=== PATIENT | female | born 1965 | race Caucasian/White ===

== ENCOUNTER → 2017-10-16 08:37 | Outpatient (CLI) | payer MEDICARE, MEDICAID, SELFPAY ==
[2017-10-16 09:21] LABS: Add Manual Diff / Slide Review NO; Basophils Percent Auto 1.1 % (0-2); Eosinophils Percent Auto 4.4 % (2-4); Hematocrit 36.3 % (36-46); Hemoglobin 11.8 g/dL (12.0-16.0); Lymphocytes Percent Auto 20.6 % (25-40); Mean Corpuscular HGB Conc 32.6 % (30-36); Mean Corpuscular Hemoglobin 27.7 PG (26-34); Mean Corpuscular Volume 85.1 fL (80-100); Monocytes Percent Auto 10.9 % (3-14); Neutrophils Absolute Auto 2600 /uL (3000-5900); Platelet Count 129 X10^3/uL (150-400); Red Blood Cell Count 4.27 X10^6/uL (4.0-5.2); Red Cell Distribution Width 14.1 % (11.6-14.8); White Blood Cell Count 4.1 X10^3/uL (4.5-11.0)
[2017-10-16 09:32] LABS: Alanine Aminotransferase 28 IU/L (9-52); Albumin 3.7 g/dL (3.5-5.0); Albumin Globulin Ratio 1.4 (1.0-2.8); Alkaline Phosphatase 57 U/L (38-126); Aspartate Aminotransferase 24 IU/L (14-36); BUN Creatinine Ratio 16.3 (6-22); Bilirubin Total 0.3 mg/dL (0.2-1.3); Blood Urea Nitrogen 13 mg/dL (7-17); Calcium 9.1 mg/dL (8.4-10.2); Carbon Dioxide 28 mmol/L (22-32); Chloride 109 mmol/L (98-107); Estimated Glomerular Filt Rate > 60.0 mL/min (>60); Globulin 2.7 g/dL (1.7-4.1); Glucose 114 mg/dL (70-100); HEMOLYSIS < 15 (0-50); Potassium 3.7 mmol/L (3.4-5.1); Sodium 145 mmol/L (137-145); Total Protein 6.4 g/dL (6.3-8.2)
[2017-10-17 16:11] LABS: Estradiol 27 pg/mL
--- NOTE | 2017-12-11 09:13 | ONC.NAV ---
Description: Survivorship Care Summary Packet Activity: Mailed copies to both patient and primary care provider.
== END ==
PROVIDERS: Family Provider Nurse Practitioner Family; PCP Nurse Practitioner Family; Visit Provider Internal Medicine Hematology & Oncology
DX: C50.912 Malignant neoplasm of unspecified site of left female breast (principal)
CPT/HCPCS: 36415; 80053; 82670; 83001; 85025

== ENCOUNTER 2017-11-03 16:54 | Emergency (ER) | payer MEDICARE, SELFPAY ==
[2017-11-03 17:00] VITALS: BP 190/103; PULSE 103; RESP 20; TEMP 36.8; O2SAT 94
--- NOTE | 2017-11-03 18:35 | ED.NAVMDI ---
HPI - Nausea/Vomiting/Diarrhea General Chief complaint: Nausea/Vomiting/Diarrhea Stated complaint: NAUSEA DIARRHEA Time Seen by Provider: 11/03/17 18:33 Source: patient Mode of arrival: ambulatory Limitations: no limitations History of Present Illness HPI Narrative: Patient is a 52-year-old female who presents with nausea vomiting and diarrhea ongoing for the last 3 days. She said it was starting to get better however today get started to get worse. She has had more vomiting than diarrhea is been nonbloody. She can't keep anything down she has diffuse all abdominal pain. And overall body aches she has been trying to sleep. MD complaint: nausea, vomiting, diarrhea and abdominal pain Related Data Home Medications Medication Instructions Recorded Confirmed BusPIRone Hydrochloride (BUSPAR 30 mg PO BID #0 09/04/12 DIVIDOSE~) atenolol 25 mg PO QDAY #0 09/04/12 citalopram 40 mg PO QDAY #0 09/04/12 omeprazole 20 mg PO QDAY@0600 #0 09/04/12 nitrofurantoin macrocrystal 50 mg PO #0 04/26/16 [Macrodantin] hydrochlorothiazide 25 mg PO QDAY #0 06/01/17 Previous Rx's Medication Instructions Recorded [Handicapped Parking] 1 ea X1 #0 04/26/16 hydroxyzine HCl 25 mg PO BIDP PRN #60 tab 03/05/17 tamoxifen 20 mg PO QDAY #90 tab 03/05/17 ondansetron [Zofran ODT] 4 mg PO Q6-8H PRN 5 Days #10 tab 11/03/17 Allergies Allergy/AdvReac Type Severity Reaction Status Date / Time adhesive Allergy Mild SKIN Unverified 05/23/17 12:01 SENSITIVITY TO TAPE Review of Systems Review of Systems GENERAL: Denies chills, fatigue, malaise, fever, sweats, travel HEENT: Denies sinus pain, ear pain, sore throat, difficulty swallowing, neck pain RESPIRATORY: Denies dyspnea, cough, wheezing, hemoptysis, sputum. CARDIOVASCULAR: Denies chest pain, palpitations, orthopnea, edema GASTROINTESTINAL: See HPI : Denies dysuria, frequency, incontinence, hematuria, urinary retention, flank pain. MUSCULOSKELETAL: Denies weakness, joint pain, or bony pain SKIN: No rash, no erythema, no pruritus NEUROLOGIC: Denies weakness, dizziness, headache, numbness, change in speech, confusion PSYCHIATRIC: No concerning psychosocial issues. 12 point review of systems is negative except for those stated above and HPI PFSH Medical History Hypertension (Acute) Surgical History Status post cholecystectomy (Acute) Status post breast lumpectomy Status post knee surgery Social History Smoking Status: Former smoker Exam Initial Vital Signs Initial Vital Signs: Vital Signs Temperature 98.3 F 11/03/17 17:00 Pulse Rate 103 H 11/03/17 17:00 Respiratory Rate 20 11/03/17 17:00 Blood Pressure 190/103 H 11/03/17 17:00 Pulse Oximetry 94 11/03/17 17:00 GENERAL: Obese female awake and alert the she does appear weak HEENT: Head atraumatic,EOMI, pupils reactive, face symmetric, [moist] mucous membranes CARDIOVASCULAR: Regular rate and rhythm without murmurs, rubs or gallops. RESPIRATORY: Breath sounds equal bilaterally, no wheezes rales or rhonchi. ABDOMEN: Soft obese, diffusely tender no guarding no rebound EXTREMITIES: Normal range of motion, no clubbing or edema. Neurovascularly intact NEUROLOGICAL: Alert and oriented x4.Normal gait and speech. Cranial nerves II through XII grossly intact. SKIN: Warm, dry, no laceration, no petechiae, no rashes or lesions. Course Orders Ordered: ED Orders 11/03/17 19:25 Complete Blood Count AUTO DIFF Stat Comprehensive Metabolic Panel Stat Lipase Stat Discontinued Medications Sodium Chloride (Normal Saline 0.9%) 1,000 mls @ 1,000 mls/hr IV CONT JETHRO Last Infusion: 11/03/17 20:46 Dose: 0 mls/hr Admin: 11/03/17 19:49 Dose: 1,000 mls/hr Ketorolac Tromethamine (Toradol) 30 mg IV NOW ONE Stop: 11/03/17 19:06 Last Admin: 11/03/17 19:49 Dose: 30 mg Ondansetron HCl (Zofran) 4 mg IV NOW ONE Stop: 11/03/17 19:06 Last Admin: 11/03/17 19:49 Dose: 4 mg Ondansetron HCl (Zofran Odt Prepack) 1 bottle MISC SEEINSTR ONE Stop: 11/03/17 20:55 Last Admin: 11/03/17 21:42 Dose: 1 bottle Pantoprazole Sodium (Protonix) 40 mg IV NOW ONE Stop: 11/03/17 19:06 Last Admin: 11/03/17 19:49 Dose: 40 mg Vital Signs - 8 hr 11/03/17 19:45 11/03/17 20:30 11/03/17 21:45 Pulse Rate 83 77 77 Respiratory Rate 17 13 14 Blood Pressure 152/72 H Blood Pressure [Left Arm] 174/98 H 152/73 H Pulse Oximetry 95 93 98 MDM - Nausea/Vomiting/Diarrhea Lab Data Attestation: I reviewed the patient's lab results. Result diagrams: 11/03/17 19:25 11/03/17 19:25 Lab Results 11/03/17 11/03/17 Range/Units 19:25 19:25 WBC 4.4 L (4.5-11.0) X10^3/uL RBC 4.79 (4.0-5.2) X10^6/uL Hgb 13.4 (12.0-16.0) g/dL Hct 40.2 (36-46) % MCV 84.0 (80-100) fL MCH 27.9 (26-34) PG MCHC 33.2 (30-36) % RDW 14.3 (11.6-14.8) % Plt Count 121 L (150-400) X10^3/uL Neut % (Auto) 60.8 (50-75) % Lymph % (Auto) 18.9 L (25-40) % [place] % (Auto) 16.7 H (3-14) % Eos % (Auto) 2.6 (2-4) % Baso % (Auto) 1.0 (0-2) % Neut # (Auto) 2600 L (5662-8396) /uL Sodium 144 (137-145) mmol/L Potassium 3.3 L (3.4-5.1) mmol/L Chloride 105 (98-107) mmol/L Carbon Dioxide 29 (22-32) mmol/L BUN 11 (7-17) mg/dL Creatinine 0.80 (0.52-1.04) mg/dL Estimated GFR > 60.0 (>60) mL/min BUN/Creatinine Ratio 13.8 (6-22) Glucose 101 H (70-100) mg/dL Calcium 9.2 (8.4-10.2) mg/dL Total Bilirubin 0.3 (0.2-1.3) mg/dL AST 34 (14-36) IU/L ALT 42 (9-52) IU/L Alkaline Phosphatase 65 (38-126) U/L Total Protein 7.1 (6.3-8.2) g/dL Albumin 4.0 (3.5-5.0) g/dL Globulin 3.1 (1.7-4.1) g/dL Albumin/Globulin Ratio 1.3 (1.0-2.8) Lipase 119 (23-300) U/L Urine Dip Bedside Urine Glucose Negative Bedside Urine Bilirubin - Negative Bedside Urine Ketone +/- 5 Urine Specific [place] 1.030 Bedside Urine Occult Blood - Negative Bedside Urine pH 6.0 Bedside Urine Protein +/- 15 Bedside Urine Urobilinogen - Negative Bedside Urine Nitrite - Negative Bedside Urine Leukocytes +/- 15 Esterase MDM Narrative Medical decision making narrative: She is tolerating oral fluids overall feels much better and is ready to go home. Discharge Plan Departure Patient Disposition: Home Clinical Impression: Gastroenteritis Discharge Date/Time: 11/03/17 21:47 Interventions: ED Discharge Assessment Last Done: 11/03/17 21:45 Instructions: Viral Gastroenteritis Activity Restrictions/Additional Instructions: 1) You have been diagnosed with gastroenteritis 2) What to do: Drink frequent but small amounts of fluids. I recommend Gatorade or a Gatorade-like product, as it has small amounts of sugar and salts that improve fluid retention. 3) Take medications as directed 4) Follow up with your primary care provider in 2-3 days 5) Return to ER if you should have any new or worsening symptoms such as, unable to hold down fluids despite use of anti-nausea medications and the small volume oral rehydration strategy. Prescriptions: New ondansetron [Zofran ODT] 4 mg tablet,disintegrating 4 mg PO Q6-8H PRN (Reason: nausea and vomiting) 5 Days Qty: 10 RF: 0 No Action citalopram 40 MG tablet 40 mg PO QDAY Qty: 0 RF: 0 atenolol 25 MG tablet 25 mg PO QDAY Qty: 0 RF: 0 omeprazole 20 MG capsule,delayed release(DR/EC) 20 mg PO QDAY@0600 Qty: 0 RF: 0 BusPIRone Hydrochloride (BUSPAR DIVIDOSE~) 30 mg PO BID Qty: 0 RF: 0 nitrofurantoin macrocrystal [Macrodantin] 50 MG capsule 50 mg PO Qty: 0 RF: 0 [Handicapped Parking] 1 ea X1 Qty: 0 RF: 0 hydroxyzine HCl 25 MG tablet 25 mg PO BIDP PRNQty: 60 RF: 2 tamoxifen 20 MG tablet 20 mg PO QDAY Qty: 90 RF: 2 hydrochlorothiazide 25 MG tablet 25 mg PO QDAY Qty: 0 RF: 0 Referrals: Gladys Mcmahon ARNP [Primary Care Provider] -
[2017-11-03 19:37] LABS: Add Manual Diff / Slide Review NO; Eosinophils Percent Auto 2.6 % (2-4); Hematocrit 40.2 % (36-46); Hemoglobin 13.4 g/dL (12.0-16.0); Lymphocytes Percent Auto 18.9 % (25-40); Mean Corpuscular HGB Conc 33.2 % (30-36); Mean Corpuscular Hemoglobin 27.9 PG (26-34); Monocytes Percent Auto 16.7 % (3-14); Neutrophils Absolute Auto 2600 /uL (3000-5900); Neutrophils Percent Auto 60.8 % (50-75); Platelet Count 121 X10^3/uL (150-400); Red Blood Cell Count 4.79 X10^6/uL (4.0-5.2); Red Cell Distribution Width 14.3 % (11.6-14.8); White Blood Cell Count 4.4 X10^3/uL (4.5-11.0)
[2017-11-03 19:45] VITALS: BP 174/98; PULSE 83; RESP 17; O2SAT 95
[2017-11-03 19:48] LABS: Alanine Aminotransferase 42 IU/L (9-52); Albumin Globulin Ratio 1.3 (1.0-2.8); Alkaline Phosphatase 65 U/L (38-126); Aspartate Aminotransferase 34 IU/L (14-36); BUN Creatinine Ratio 13.8 (6-22); Bilirubin Total 0.3 mg/dL (0.2-1.3); Blood Urea Nitrogen 11 mg/dL (7-17); Calcium 9.2 mg/dL (8.4-10.2); Carbon Dioxide 29 mmol/L (22-32); Chloride 105 mmol/L (98-107); Estimated Glomerular Filt Rate > 60.0 mL/min (>60); Globulin 3.1 g/dL (1.7-4.1); Glucose 101 mg/dL (70-100); HEMOLYSIS < 15 (0-50); Lipase 119 U/L (23-300); Potassium 3.3 mmol/L (3.4-5.1); Sodium 144 mmol/L (137-145); Total Protein 7.1 g/dL (6.3-8.2)
[2017-11-03] MEDS: SODIUM CHLORIDE 0.9% 1,000 ML 1000 ML IV (19:49)
[2017-11-03] MEDS: KETOROLAC 60 MG/2 ML VIAL 30 MG IV (19:49)
[2017-11-03] MEDS: ONDANSETRON 4 MG/2 ML INJ IV (19:49)
[2017-11-03] MEDS: PANTOPRAZOLE 40 MG VIAL IV (19:49)
[2017-11-03 20:30] VITALS: BP 152/73; PULSE 77; RESP 13; O2SAT 93
[2017-11-03] MEDS: ONDANSETRON 4 MG ODT PREPACK 1 BOTTLE MISC (21:42)
[2017-11-03 21:45] VITALS: BP 152/72; PULSE 77; RESP 14; O2SAT 98
== END 2017-11-03 21:47 | disposition home or self-care (01) ==
PROVIDERS: Emergency Provider Emergency Medicine; Family Provider Nurse Practitioner Family; PCP Nurse Practitioner Family
DX: K52.9 Noninfective gastroenteritis and colitis, unspecified (principal)
CPT/HCPCS: 36591; 80053; 81003; 83690; 85025; 96361; 96374; 96375; 99283; 99284; C9113; J1885; J2405

== ENCOUNTER 2017-11-21 09:52 | Oncology outpatient (ONC) | payer MEDICARE, SELFPAY ==
[2017-11-21 10:21] VITALS: BP 157/79; PULSE 76; RESP 18; TEMP 36.4; O2SAT 92
--- NOTE | 2017-11-21 10:45 | P.PNONC_ITS ---
PN -Subjective Interval history: Diagnosis: Bilateral breast cancers. The 1st on the right was T2 N0 ERPR positive HER2 positive. She had lumpectomy and sentinel node biopsy April 2011 followed by Adriamycin Cytoxan and then Taxol and Herceptin. She had adjuvant radiation and has been on tamoxifen since then. Next on the left, she had a T2 N1 ER positive RI negative her 2-tumor. She had lumpectomy and sentinel node biopsy. This was followed by docetaxel and cyclophosphamide for 4 cycles finishing November 2015. She did have adjuvant radiation and continued on tamoxifen. Interval history: The patient is a 52-year-old woman who returns today for follow-up of breast cancer. She is feeling well and has no specific complaints today. She has not noted any changes in the breast. There are no new masses. She is not having any pain. She has not noted any swelling in the arms or hands. No shortness of breath or cough. She did have some nausea and vomiting and was in the emergency room about 2 weeks ago. Her symptoms have since resolved. Strength and energy level have been normal. Her appetite and weight have been stable. She has been tolerating her tamoxifen with minimal difficulty. He does but otherwise is tolerating it well. At her last visit, she had discussed switching to an aromatase inhibitor but did not do it. Her past medical history is notable for hypertension depression and anxiety. She has had a history of frequent urinary tract infections. 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 She does not smoke. She has rare alcohol use. She is not aware of any family history of breast cancer any other malignancy. Home Medications and Allergies Home Medications Medication Instructions Recorded Confirmed Type BusPIRone Hydrochloride (BUSPAR 30 mg PO BID #0 09/04/12 History DIVIDOSE~) atenolol 25 mg PO QDAY #0 09/04/12 History citalopram 40 mg PO QDAY #0 09/04/12 History omeprazole 20 mg PO QDAY@0600 #0 09/04/12 History [Handicapped Parking] 1 ea X1 #0 04/26/16 Rx nitrofurantoin macrocrystal 50 mg PO #0 04/26/16 History [Macrodantin] hydroxyzine HCl 25 mg PO BIDP PRN #60 tab 03/05/17 Rx tamoxifen 20 mg PO QDAY #90 tab 03/05/17 Rx hydrochlorothiazide 25 mg PO QDAY #0 06/01/17 History bupropion HCl 200 mg PO BID 11/21/17 11/21/17 History lorazepam 0.5 mg PO PRN PRN 11/21/17 11/21/17 History ondansetron 4 mg PO PRN PRN 11/21/17 11/21/17 History Allergies Allergy/AdvReac Type Severity Reaction Status Date / Time adhesive Allergy Mild SKIN Unverified 05/23/17 12:01 SENSITIVITY TO TAPE Exam Vital signs: Last Vital Signs Temp 97.6 F 11/21/17 10:21 Pulse 76 11/21/17 10:21 Resp 18 11/21/17 10:21 BP 157/79 H 11/21/17 10:21 Pulse Ox 92 11/21/17 10:21 - Constitutional positive no acute distress, positive obese - Routine HEENT Exam Head: Present: normocephalic, atraumatic Eye: Present: EOMI, PERRL. Absent: conjunctival icterus, scleral injection ENT: Present: mucous membranes moist, oropharynx clear - Routine Neck Exam Present: supple. Absent: lymphadenopathy, thyromegaly - Routine Chest/Breast/Axilla Exam Comments: Breast exam shows well-healed incisions bilaterally. She has some an area of firmness in the right breast that has been stable. There is no suspicious mass. There is no axillary adenopathy on either side. - Routine Respiratory Exam Present: Clear to auscultation bilaterally. Absent: rales, wheezes - Routine Cardiovascular Exam Present: RRR, S1, S2. Absent: murmur - Routine Abdominal Exam Present: soft, normoactive bowel sounds. Absent: tenderness, organomegaly, mass - Routine Extremities Exam Absent: cyanosis, clubbing, edema - Routine Back/Spine Exam Back/Spine: Absent: paraspinal tenderness, vertebral tenderness - Routine Skin Exam Present: intact. Absent: petechiae, rash Comments: She does have some excoriations on her legs. - Routine Neurological Exam Present: alert, oriented X3 - Routine Psychiatric Exam Present: normal affect, normal thought process Results - Imaging Additional studies: Procedures Injection or infusion of other therapeutic or prophylactic substance (07/22/11) Resection of Gallbladder, Percutaneous Endoscopic Approach (08/17/15) Transfusion of Nonautologous Red Blood Cells into Peripheral Vein, Percutaneous Approach (04/19/16) Assessment and Plan (1) Breast cancer Problem details: 52-year-old woman with a history of a bilateral breast cancers the most recent was diagnosed about 2 years ago. She has no evidence of recurrence and is doing well. She will be due for a mammogram in January. Today review data regarding the role of adjuvant hormonal therapy in reducing risk of recurrence. We did point out that aromatase inhibitors were slightly more effective than tamoxifen. We discussed length of therapy and switching strategies. Side effects of aromatase inhibitor including risk for osteoporosis musculoskeletal complaints hot flashes irritability mood changes thinning of the hair dry skin were reviewed with the patient. I did point out that they were slightly more effective than tamoxifen so that the risk of recurrence was a little bit lower. However, the magnitude of that difference was small. After discussing the risks and benefits, the patient has elected to remain on tamoxifen and she has been tolerating it pretty well. She will continue with her current regimen and return to clinic here in 6 months for follow-up. Current visit: No Status: Acute
== END 2017-11-22 12:00 ==
LOC: ONC 09:56
PROVIDERS: Family Provider Nurse Practitioner Family; PCP Nurse Practitioner Family
DX: C50.911 Malignant neoplasm of unspecified site of right female breast (principal); C50.912 Malignant neoplasm of unspecified site of left female breast; Z79.810 Long term (current) use of selective estrogen receptor modulators (SERMs)
CPT/HCPCS: 99215

== ENCOUNTER 2017-12-18 10:00 | Oncology outpatient (ONC) | payer MEDICARE, SELFPAY ==
--- NOTE | 2017-12-18 13:05 | ONC.APRN.PN ---
PN -Subjective Interval history: Denice is here today for survivorship. She is a 52-year-old female who interestingly enough carries a diagnosis of bilateral breast cancers. The 1st cancer was right breast T2 N 0 ERPR positive, her 2-. She underwent lumpectomy with sentinel node biopsy April 2011 followed by Adriamycin , Cytoxan , thin Taxol and Herceptin. Additionally she did undergo adjuvant radiation. She has been on tamoxifen since. Left breast, T2 N 1 ER positive AR negative her 2-. She had lumpectomy with sentinel node biopsy followed by docetaxel and cyclophosphamide. Additionally, once again adjuvant radiation. Overall patient feels she is doing quite well she does not report any sequelae of chemotherapy and/or radiation. She did have severe depression during her treatment. Currently she is taking BuSpar, citalopram, Wellbutrin. Mood has been quite stable. She denies any recent depression. Primary care is managing at this point however initially she was managed by [facility] We reviewed with the patient her treatment plan including the 2 different chemotherapy regimens. We discussed surgery, late effects of radiation and chemotherapy. We discussed preventative health measures. Specifically in regards to tamoxifen patient understands she does need an annual pelvic exam. She had a colonoscopy 1 year ago. Pt was provided with all documentation of late effects/sequelae of her treatment. This information will also be mailed to her primary care provider, Gladys SPARROW. All questions answered to patient's satisfaction. Participating in this visit was also Alisha SANTO who addressed psychosocial concerns. Home Medications and Allergies Home Medications Medication Instructions Recorded Confirmed Type BusPIRone Hydrochloride (BUSPAR 30 mg PO BID #0 09/04/12 History DIVIDOSE~) atenolol 25 mg PO QDAY #0 09/04/12 History citalopram 40 mg PO QDAY #0 09/04/12 History omeprazole 20 mg PO QDAY@0600 #0 09/04/12 History [Handicapped Parking] 1 ea X1 #0 04/26/16 Rx nitrofurantoin macrocrystal 50 mg PO #0 04/26/16 History [Macrodantin] hydroxyzine HCl 25 mg PO BIDP PRN #60 tab 03/05/17 Rx tamoxifen 20 mg PO QDAY #90 tab 03/05/17 Rx hydrochlorothiazide 25 mg PO QDAY #0 06/01/17 History bupropion HCl 200 mg PO BID 11/21/17 11/21/17 History lorazepam 0.5 mg PO PRN PRN 11/21/17 11/21/17 History ondansetron 4 mg PO PRN PRN 11/21/17 11/21/17 History Allergies Allergy/AdvReac Type Severity Reaction Status Date / Time adhesive Allergy Mild SKIN Unverified 05/23/17 12:01 SENSITIVITY TO TAPE Exam Narrative: face to face consult only today Results - Imaging Additional studies: Procedures Injection or infusion of other therapeutic or prophylactic substance (07/22/11) Resection of Gallbladder, Percutaneous Endoscopic Approach (08/17/15) Transfusion of Nonautologous Red Blood Cells into Peripheral Vein, Percutaneous Approach (04/19/16) Assessment and Plan (1) Breast cancer Problem details: 52-year-old woman with a history of a bilateral breast cancers the most recent was diagnosed about 2 years ago. She has no evidence of recurrence and is doing well. She will be due for a mammogram in January. Today review data regarding the role of adjuvant hormonal therapy in reducing risk of recurrence. We did point out that aromatase inhibitors were slightly more effective than tamoxifen. We discussed length of therapy and switching strategies. Side effects of aromatase inhibitor including risk for osteoporosis musculoskeletal complaints hot flashes irritability mood changes thinning of the hair dry skin were reviewed with the patient. I did point out that they were slightly more effective than tamoxifen so that the risk of recurrence was a little bit lower. However, the magnitude of that difference was small. After discussing the risks and benefits, the patient has elected to remain on tamoxifen and she has been tolerating it pretty well. She will continue with her current regimen and return to clinic here in 6 months for follow-up. Current visit: No Status: Acute [id number] consultation today for survivor ship teaching. All questions answered to patient's satisfaction. She was provided with a written treatment plan outlining the treatment she received. Also she was provided with NCCN guidelines regarding ongoing monitoring. Patient will be having her annual screening mammogram in January. She is scheduled to return in the spring for provider visit. - Time Spent with Patient 45 mins with pt face to face 5 mins prior review of records 5 mins dictation
== END 2017-12-19 12:00 ==
PROVIDERS: Family Provider Nurse Practitioner Family; PCP Nurse Practitioner Family; Visit Provider Nurse Practitioner Gerontology
DX: C50.912 Malignant neoplasm of unspecified site of left female breast (principal); Z79.810 Long term (current) use of selective estrogen receptor modulators (SERMs); Z17.0 Estrogen receptor positive status [ER+]
CPT/HCPCS: 99215

== ENCOUNTER → 2018-01-16 12:02 | Outpatient (CLI) | payer MEDICARE, SELFPAY ==
--- NOTE | 2018-01-16 | DI.MG.S_ITS ---
BILATERAL DIGITAL SCREENING MAMMOGRAM 3D/2D WITH CAD POST LUMPECTOMY: 01/16/2018 CLINICAL: Routine screening. Personal history of bilateral breast cancer. Comparison is made to exams dated: 01/15/2017 mammogram, 06/21/2015 mammogram, and 05/14/2014 mammogram - [facility]. There are scattered fibroglandular elements in both breasts. Current study was also evaluated with a Computer Aided Detection (CAD) system. There are stable benign post operative findings in both breasts. No significant masses, calcifications, or other findings are seen in either breast. There has been no significant interval change. IMPRESSION: There is no mammographic evidence of malignancy. A 1 year screening mammogram is recommended. This exam was interpreted at Station ID: [id number]. NOTE: For mammograms, a report in lay terms will be sent to the patient. Approximately 15% of breast malignancies will not be visualized mammographically. In the management of a palpable breast mass, a negative mammogram must not discourage biopsy of a clinically suspicious lesion. Electronically Signed By: Ata villa/melinda:01/16/2018 16:28:19 copy to: LIVAN GREEN letter sent: Normal Exam ACR BI-RADS Category 2: Benign Finding(s) [id number]
== END ==
PROVIDERS: Family Provider Nurse Practitioner Family; PCP Nurse Practitioner Family
DX: Z12.31 Encounter for screening mammogram for malignant neoplasm of breast (principal); Z85.3 Personal history of malignant neoplasm of breast
CPT/HCPCS: 77063; 77067

== ENCOUNTER → 2019-01-17 11:10 | Outpatient (CLI) | payer MEDICARE, SELFPAY ==
--- NOTE | 2019-01-17 11:12 | DI.MG.S_ITS ---
BILATERAL DIGITAL SCREENING MAMMOGRAM 3D/2D WITH CAD POST LUMPECTOMY: 01/17/2019 CLINICAL: Routine screening.Personal history of breast cancer bilaterally. Comparison is made to exams dated: 01/16/2018 mammogram, 01/15/2017 mammogram, and 07/06/2015 mammogram - [facility]. There are scattered fibroglandular elements in both breasts. Current study was also evaluated with a Computer Aided Detection (CAD) system. There are stable benign calcifications in both breasts. There also are benign post operative findings in the right breast. Additionally, there are benign post operative findings and biopsy clip in the left breast. No significant masses, calcifications, or other findings are seen in either breast. There has been no significant interval change. IMPRESSION: There is no mammographic evidence of malignancy. A 1 year screening mammogram is recommended. This exam was interpreted at Station ID: [id number]. NOTE: For mammograms, a report in lay terms will be sent to the patient. Approximately 15% of breast malignancies will not be visualized mammographically. In the management of a palpable breast mass, a negative mammogram must not discourage biopsy of a clinically suspicious lesion. Electronically Signed By: Jose G gonzalez/melinda:01/20/2019 19:26:14 letter sent: Normal Exam ACR BI-RADS Category 2: Benign Finding(s) [id number]
== END ==
PROVIDERS: Family Provider Family Medicine; PCP Family Medicine
DX: Z12.31 Encounter for screening mammogram for malignant neoplasm of breast (principal)
CPT/HCPCS: 77063; 77067

== ENCOUNTER → 2019-08-26 12:12 | Outpatient (CLI) | payer MEDICARE, SELFPAY ==
--- NOTE | 2019-08-26 12:14 | DI.RAD.S_ITS ---
This blank DEXA report has been sent in error by the PACS system. The correct and complete report will be forthcoming in 1-2 days. Thank you for your patience and understanding. Dictated by: Natalie Quiles MD, PhD on 08/26/2019 at 13:45 Approved by: Natalie Quiles MD, PhD on 08/26/2019 at 13:45
== END ==
PROVIDERS: Family Provider Family Medicine; PCP Family Medicine; Referring Provider Internal Medicine; Visit Provider Internal Medicine
DX: M85.852 Other specified disorders of bone density and structure, left thigh (principal); Z78.0 Asymptomatic menopausal state; C50.919 Malignant neoplasm of unspecified site of unspecified female breast; Z87.891 Personal history of nicotine dependence
CPT/HCPCS: 77080

== ENCOUNTER → 2020-03-25 13:23 | Outpatient (CLI) | payer MEDICARE, SELFPAY ==
--- NOTE | 2020-03-25 | DI.MG.S_ITS ---
BILATERAL DIGITAL DIAGNOSTIC MAMMOGRAM 3D/2D: 03/25/2020 CLINICAL: Right breast pain. Comparison is made to exams dated: 01/17/2019 mammogram, 01/16/2018 mammogram, and 01/15/2017 mammogram - [facility]. There are scattered fibroglandular elements in both breasts. No significant masses, calcifications, or other findings are seen in either breast. IMPRESSION: INCOMPLETE: NEEDS ADDITIONAL IMAGING EVALUATION There is no abnormality seen in the right breast to correspond with the palpable abnormality and tenderness in the outer aspect, however, ultrasound is recommended. This exam was interpreted at Station ID: [id number]. NOTE: For mammograms, a report in lay terms will be sent to the patient. Approximately 15% of breast malignancies will not be visualized mammographically. In the management of a palpable breast mass, a negative mammogram must not discourage biopsy of a clinically suspicious lesion. Electronically Signed By: Ata Alvarado M.D. ddregis/[email or web address]:03/25/2020 14:16:38 ACR BI-RADS Category 0: Incomplete [id number]
--- NOTE | 2020-03-25 13:24 | DI.US.S_ITS ---
LIMITED ULTRASOUND OF RIGHT BREAST AND AXILLA: 03/25/2020 CLINICAL: Focal right breast and axilla tenderness and skin thickening. Comparison is made to exams dated: 03/25/2020 mammogram, 01/17/2019 mammogram, 01/16/2018 mammogram, 03/12/2017 ultrasound, and 01/15/2017 mammogram - [facility]. Real-time ultrasound of the right breast upper outer quadrant and axilla regions was performed on the areas of interest. No discrete cystic or solid mass lesion identified in the area of palpable abnormality. IMPRESSION: NEGATIVE There is no sonographic evidence of malignancy. There is no abnormality seen in the right breast or in the right axilla to correspond with the palpable abnormality and tenderness in the upper outer quadrant and in the right axilla, however, clinical followup is recommended. A 1 year screening mammogram is recommended. This exam was interpreted at Station ID: [id number]. Electronically Signed By: Ata Alvarado M.D. ddp/:03/25/2020 14:54:53 letter sent: Clinical Evaluation Ultrasound BI-RADS: 1 Negative
== END ==
LOC: MAMMO 13:24
PROVIDERS: Family Provider Family Medicine; PCP Nurse Practitioner Family; Referring Provider Internal Medicine; Visit Provider Internal Medicine
DX: R92.8 Other abnormal and inconclusive findings on diagnostic imaging of breast (principal); N64.4 Mastodynia; C50.911 Malignant neoplasm of unspecified site of right female breast; C50.912 Malignant neoplasm of unspecified site of left female breast; Z17.0 Estrogen receptor positive status [ER+]
CPT/HCPCS: 76642; 77066; G0279

== ENCOUNTER → 2020-07-02 13:18 | Outpatient (CLI) | payer MEDICARE, SELFPAY | PROVIDERS: Family Provider Family Medicine; PCP Nurse Practitioner Family; Referring Provider Specialist; Visit Provider Specialist | DX: N95.1 Menopausal and female climacteric states (principal) | CPT/HCPCS: 36415; 83001 ==

== ENCOUNTER → 2020-07-15 14:27 | Outpatient (CLI) | payer MEDICARE, SELFPAY ==
[2020-07-15 15:50] LABS: COVID19 -Nasal RAPID Negative (Negative)
== END ==
PROVIDERS: Family Provider Family Medicine; PCP Nurse Practitioner Family; Visit Provider Specialist
DX: Z01.812 Encounter for preprocedural laboratory examination (principal); Z20.822 Contact with and (suspected) exposure to COVID-19
CPT/HCPCS: 87635

== ENCOUNTER 2020-07-16 07:42 | Day surgery (SDC) | payer MEDICARE, SELFPAY ==
[2020-07-09 14:33] VITALS: BMI 53.1
[2020-07-16] VITALS (14 sets, daily range): BP systolic 130–198; BP diastolic 72–104; PULSE 90–114; RESP 12–20; TEMP 36.6–36.9; O2SAT 90–94; BMI 53.1
--- NOTE | 2020-07-16 | PATH_ITS ---
[facility] Accession Number: [id number] . 01 Material submitted: . endometrium - ENDOMETRIAL BIOPSY AND CURETTINGS . 02 Diagnosis: Endometrial Biopsy and Curettings: Benign (simple/nonatypical) endometrial hyperplasia in a background of disordered proliferative endometrium. Negative for cytologic atypia or malignancy. Avulsed squamous epithelium with no significant histomorphologic abnormality. [facility] 07/20/2020 1835 Local . 02 Electronically signed: . Aye Villeda MD, Pathologist NPI- [id number] . 01 Gross description: . The specimen is received in formalin, labeled endometrial biopsy and curettings, and consists of multiple brown-pink fragments of soft tissue measuring 2.0 x 1.5 x 0.4 cm in aggregate. The specimen is filtered and entirely submitted in cassette A1. ([id number]) /[facility] 07/17/2020 1354 Local . 02 Pathologist provided ICD-10: R93.89 . 02 CPT . 865717 Performed at: 01 [facility] [address] [facility] [place], [place], [place] [id number] MD Ata Olmos MD Phone: [phone] Performed at: 02 [facility] [address] [place], [place] [id number] MD Amrita House MD Phone: [phone]
[2020-07-16] MEDS: LACTATED RINGERS 1,000 ML 100 ML IV ×2 (08:31→09:38)
--- NOTE | 2020-07-16 08:45 | SUR.OPER ---
Lithotomy on padded OR bed, head on pillow, arms secured on padded arm boards at <90 degrees abduction. Legs secured in padded yellow fins stirrups.
--- NOTE | 2020-07-16 08:52 | PM.PREOP ---
Pre-operative Note COVID-19 COVID-19 status: Negative Result date/Date tested (Pos, Neg/Pending): 07/15/20 Interval Note History & Physical reviewed/Exam performed by Physician: Yes Changes to H&P: No
--- NOTE | 2020-07-16 10:02 | PM.OP.1 ---
Operative Date/Time/Diagnoses Date of procedure: 07/16/20 Time of procedure: 10:02 Pre-op diagnosis: Abnormal bleeding and abnormal endometrium on ultrasound Post-op diagnosis: same Procedure & Clinicians Procedure: Hysteroscopy with resection of areas of endometrium and endometrial curettage Same procedure as scheduled: Yes Indications: Abnormal uterine bleeding with abnormal appearance of endometrium on ultrasound. Patient is on letrozole for breast cancer history. Surgeon: Lisseth Crawford Click Yes if Unassisted: Yes Anesthesia Type: General Operative Notes Findings: Cystic thin endometrium with likely adenomyosis. Endometrial and endocervical polyps. Closure Type: not applicable Specimen(s): other (Biopsies of endometrium with endometrial curettage) Estimated Blood Loss (mL): 20 Blood products transfused: none Procedure in detail: The patient was brought to the operating room where she underwent general anesthesia. She was placed in low stirrups She was prepped and draped in usual sterile fashion with pulsatile stockings in place and functional, warming in place. A check system was reviewed with staff in the room prior to beginning the case. Her bladder was drained with in and out catheter. A single-tooth tenaculum was placed on the anterior lip of the cervix and the uterus dilated to #8 Hegar dilator. The hysteroscope was placed into the uterus with a sorbitol solution running and under constant suction. The resecting loop set at 80 W of cutting was used to resect areas of increased blood vessels, area that appeared to be a endometrial polyp, endocervical polyp. A endometrial curettage was performed. The resected endometrium, polyps, and the endometrial curettage was sent to pathology. The patient went to recovery room in good condition counts of instruments and sponges were correct. The sorbitol solution I=O approximately 4000 mL. Complications: none Post-operative Condition: stable Disposition: same day surgery Plan for aftercare: Treatment and follow-up based on biopsy results.
[2020-07-16] MEDS: fentaNYL 100 MCG/2 ML INJ IV ×3 (10:07→10:44)
[2020-07-16] MEDS: ACETAMINOPHEN 325 MG TABLET 650 MG PO (10:39)
[2020-07-16] MEDS: OXYCODONE IR 5 MG TABLET PO (10:40)
[2020-07-16] MEDS: LABETALOL 20 MG/4 ML SYRINGE 10 MG IV (10:45)
== END 2020-07-16 12:05 | disposition home or self-care (01) ==
PROVIDERS: Family Provider Family Medicine; PCP Nurse Practitioner Family; Referring Provider Specialist; Visit Provider Specialist
PROC: 0UDB8ZZ Extraction of Endometrium, Via Natural or Artificial Opening Endoscopic (ICD-10-PCS; CPT 58558; principal; 2020-07-16 09:15)
DX: N85.01 Benign endometrial hyperplasia (principal); N93.9 Abnormal uterine and vaginal bleeding, unspecified; I10 Essential (primary) hypertension; Z85.3 Personal history of malignant neoplasm of breast
CPT/HCPCS: 58558; J1100; J1885; J2405; J2704; J3010